=== PATIENT | female | born 1960 | race Caucasian/White ===

== ENCOUNTER 2017-11-25 11:27 | Day surgery (SDC) | payer BC ==
[~2017-11-25 11:27] MED LIST: CLINDAMYCIN 600 MG/D5W (PMX) 50 ML IVPB; SOD CHLORIDE 0.9% 1,000 ML IV
[2017-11-25] MEDS ORDERED: ONDANSETRON 4 MG INJ (14:38)
[2017-11-25] MEDS ORDERED: PROPOFOL 40 ML (14:38)
[2017-11-25] MEDS ORDERED: FENTAnyl 50 MCG/ML VIAL (14:38)
[2017-11-25] MEDS ORDERED: MIDAZOLAM 1 MG/ML 2 ML INJ (14:38)
[2017-11-25] MEDS ORDERED: KETOROLAC 30 MG INJ (14:39)
[2017-11-25] MEDS ORDERED: CEFAZOLIN 1 GM INJ (14:42)
[2017-11-25] MEDS ORDERED: METOCLOPRAMIDE 10 MG INJ (14:55)
[2017-11-25] MEDS: BUPIVACAINE 0.25% (MPF) 30 ML INJ (15:11)
[2017-11-25] MEDS: LIDOCAINE 2% (SDV) 5 ML INJ (15:12)
[2017-11-25] MEDS ORDERED: HYDROCODONE/APAP (5/325) TAB PO (15:30)
[2017-11-25] MEDS ORDERED: HYDROmorphONE (0.2 MG/ML) 10ML SYG IV ×2 (16:00)
== END 2017-11-25 16:50 | disposition home or self-care (01) ==
LOC: SDS 11:27
DX: L72.0 Epidermal cyst (principal); I10 Essential (primary) hypertension; E78.5 Hyperlipidemia, unspecified
CPT/HCPCS: 14000; 88307